=== PATIENT | male | born 1985 | race Caucasian/White ===

== ENCOUNTER 2019-01-11 20:12 | Emergency (ER) | payer OTHER ==
[2019-01-11] MEDS ORDERED: traMADol 50 MG TABLET PO STA (21:24)
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
[2019-01-11 22:14] VITALS: BP 126/74
== END 2019-01-11 22:12 | disposition home or self-care (01) ==
LOC: ED 20:12
DX: T22.53 Corrosion of first degree of upper arm (principal); T65.91XA Toxic effect of unspecified substance, accidental (unintentional), initial encounter; Y99.0 Civilian activity done for income or pay; F17.200 Nicotine dependence, unspecified, uncomplicated
CPT/HCPCS: 1040M; 99282; 99283; A9270

== ENCOUNTER 2019-07-12 09:49 | Outpatient (CLI) | payer OTHER ==
[2019-07-12] MEDS ORDERED: IOVERSOL 320 100 ML VIAL IVP ONE (10:06)
[2019-07-12] MEDS ORDERED: IOVERSOL 320 50 ML VIAL ONE (10:06)
--- NOTE | 2019-07-12 15:10 | CT Report ---
Reason: W/DIASTASIS AND UMBILICAL HERNIA Procedure Date: 07/12/2019 Accession Number: [id number] / [id number] Procedure: CT - Abdomen/Pelvis W CPT Code: Final Report FULL RESULT: EXAM: CT ABDOMEN AND PELVIS WITH IV CONTRAST EXAM DATE: 07/12/2019 11:29 AM. CLINICAL HISTORY: Diastasis and umbilical hernia. COMPARISONS: None. TECHNIQUE: Routine helical CT imaging was performed through the abdomen and pelvis. IV contrast: Optiray 320, 100 mL. Enteric contrast: Yes. Reconstructions: Coronal and sagittal. In accordance with CT protocol optimization, one or more of the following dose reduction techniques were utilized for this exam: automated exposure control, adjustment of mA and/or KV based on patient size, or use of iterative reconstructive technique. FINDINGS: Lung Bases: Unremarkable. Liver: Normal. No masses. Gallbladder/Bile Ducts: Unremarkable. Spleen: Normal. Pancreas: Normal. Adrenal Glands: Normal. Kidneys: Normal. No masses or hydronephrosis. Peritoneal Cavity/Bowel: Normal. No free fluid, free air or adenopathy. No masses or acute inflammatory process. The appendix is well visualized and normal. Pelvic Organs: Normal. The bladder and visualized pelvic organs are within normal limits. Vasculature: No aneurysms or other significant abnormality. Bones: No significant abnormality. Other: There is an umbilical hernia which contains fat protruding through a 0.6 cm abdominal wall defect. IMPRESSION: Fat-containing umbilical hernia with a 0.6 cm wide neck. RADIA
== END 2019-07-12 09:50 | disposition home or self-care (01) ==
LOC: DI 09:49
PROVIDERS: ATTEND Surgery
DX: K42.9 Umbilical hernia without obstruction or gangrene (principal)
CPT/HCPCS: 74177; Q9967

== ENCOUNTER 2021-03-03 07:28 | Outpatient (CLI) | payer OTHER ==
--- NOTE | 2021-03-03 11:35 | XRAY Report ---
PROCEDURE: Knee 4 View RT INDICATIONS: Right knee pain TECHNIQUE: 4 views of the right knee(s) were acquired. COMPARISON: None. FINDINGS: Tricompartmental joint space narrowing in the right knee with small marginal osteophytes. There is mi ld subchondral cystic change in the lateral femorotibial compartment. No acute finding. Normal patellar position. No knee joint effusion. Regional soft tissues unremarkabl e. IMPRESSION: Overall acga-zq-bwayerli osteoarthritis in the knee, worst in the lateral femorotibial c ompartment. Reviewed by: Danielito Inman MD on 03/03/2021 11:34 AM PDT Approved by: Danielito Inman MD on 03/03/2021 11:34 AM PDT Station ID: [id number]
== END 2021-03-03 23:59 | disposition home or self-care (01) ==
LOC: DI.N 07:28
PROVIDERS: ATTEND Physician Assistant
DX: M17.11 Unilateral primary osteoarthritis, right knee (principal)

== ENCOUNTER 2021-03-18 08:16 | Outpatient (CLI) | payer OTHER ==
--- NOTE | 2021-03-18 10:53 | MRI Report ---
PROCEDURE: Knee RT W/O INDICATIONS: RIGHT KNEE INTERNAL DERANGEMENT TECHNIQUE: Noncontrast sagittal PD fast spin echo and T2 fast spin echo with fat saturation, sagittal 3-D gradie nt sequence with fat saturation; coronal T1 spin echo and PD fast spin echo with fat saturation, and axial PD fast spin echo with fat saturation through the knee. COMPARISON: None. FINDINGS: Image quality: Excellent. Menisci: The medial and lateral menisci demonstrate normal morphology and internal signal. The meni scal root ligaments appear intact. Cruciate ligaments: The anterior and posterior cruciate ligaments appear intact. Medial structures: The medial collateral ligament appears intact. The posterior oblique ligament, s emimembranosus tendon insertions, and oblique popliteal ligament, and meniscocapsular junction appear intact. Visualized portions of the pes anserinus tendons appear normal. No abnormal bursal fluid. Lateral structures: The lateral collateral ligament, long and short heads of the biceps femoris tend on appear intact. The popliteus tendon appears normal; the popliteofibular ligament appears intact. The posterosuperior and anteroinferior popliteomeniscal fascicles appear intact. The arcuate and fa bellofibular ligaments appear intact, around the lateral inferior geniculate artery. Iliotibial band appears normal. Anterior structures: The quadriceps and patellar tendons appear intact. Patellar alignment is roberto l. No femoral trochlear dysplasia or ventral trochlear prominence. No edema in the infrapatellar fa t pad. Bones and cartilage: There is joint space narrowing and moderate grade chondromalacia involving later al femoral tibial compartment. Osteochondral injury involving weightbearing portion of lateral femora l condyle measures up to 1.3 x 2 x 0.7 cm in size is seen with surrounding edema. No other area of ab normal marrow signal. Joint space: There is small knee joint fluid. No Barboza?s cyst. Normal appearing synovial plicae ar e incidentally noted. IMPRESSION: 1. 1.3 x 2 x 0.7 cm osteochondral injury involving posterior weightbearing portion of lateral femoral condyle with surrounding edema. Mild osteoarthritis and low to moderate grade chondromalacia in late ral femoral tibial compartment. Small amount of joint fluid. 2. Cruciate ligaments are intact. 3. No evidence of focal meniscal tear. Reviewed by: Salazar Campoverde MD on 03/18/2021 10:52 AM PDT Approved by: Salazar Campoverde MD on 03/18/2021 10:52 AM PDT Station ID: [id number]
== END 2021-03-18 08:17 | disposition home or self-care (01) ==
LOC: DI 08:16
PROVIDERS: ATTEND Physician Assistant
DX: M17.11 Unilateral primary osteoarthritis, right knee (principal); M94.261 Chondromalacia, right knee; M25.461 Effusion, right knee; R93.6 Abnormal findings on diagnostic imaging of limbs

== ENCOUNTER 2021-07-28 08:00 | Outpatient (CLI) | payer OTHER | END 2021-07-28 23:59 | LOC: LAB.N 08:00 | PROVIDERS: ATTEND Physician Assistant Medical | DX: R09.81 Nasal congestion (principal); Z20.822 Contact with and (suspected) exposure to COVID-19 ==

== ENCOUNTER 2023-03-16 11:18 | Outpatient (CLI) | payer OTHER ==
--- NOTE | 2023-03-16 16:14 | XRAY Report ---
PROCEDURE: Lumbar Spine Complete INDICATIONS: LUMBAGO TECHNIQUE: 4 views of the lumbar spine were acquired including oblique views. COMPARISON: None. FINDINGS: Bones: 5 mxh-sjz-scqkpsc vertebrae are present. There is normal bony alignment. No vertebral body compression fractures. No suspicious bony lesions. Mild L1-L2, L2-L3 and L3-L4 degenerative disc hortencia nge. Soft tissues: Overlying bowel gas pattern is normal. No suspicious soft tissue calcifications. Obliques: No pars defects. IMPRESSION: No fracture. No acute osseous lesion. If there is continued clinical concern for pathology, then MRI should be considered for further evaluation. Reviewed by: Tawana Alva MD, PhD on 03/16/2023 4:13 PM PDT Approved by: Tawana Alva MD, PhD on 03/16/2023 4:13 PM PDT Station ID: [id number]
== END 2023-03-16 11:19 | disposition home or self-care (01) ==
LOC: DI 11:18
PROVIDERS: ATTEND Nurse Practitioner Family
DX: M54.41 Lumbago with sciatica, right side (principal)

== ENCOUNTER 2023-03-24 08:55 | Outpatient (CLI) | payer OTHER ==
[2023-03-24 09:18] LABS: ALBUMIN 4.7 g/dL (3.2-5.5); ALBUMIN/GLOBULIN RATIO 1.5 (1.0-2.2); ALKALINE PHOSPHATASE 69 IU/L (42-121); ALT ALANINE AMINOTRANSFERASE 29 IU/L (10-60); AST ASPARTATE AMINOTRANSFERASE 18 IU/L (10-42); BILIRUBIN,TOTAL 0.8 mg/dL (0.2-1.0); BUN - BLOOD UREA NITROGEN 12 mg/dL (6-20); CARBON DIOXIDE - CO2 26 mmol/L (21-32); CHLORIDE 105 mmol/L (101-111); CHOL/HDL RATIO 4.3 (<5.0); CHOLESTEROL 209 mg/dL; GFR - MDRD 85 (>89); GLUCOSE 101 mg/dL (74-104); HDL CHOLESTEROL 49 mg/dL; LDL CHOLESTEROL,CALCULATED 139 mg/dL; LDL/HDL RATIO 2.8 (<3.6); POTASSIUM 3.9 mmol/L (3.5-4.5); SODIUM 136 mmol/L (135-145); TOTAL PROTEIN 7.8 g/dL (6.4-8.9); TRIGLYCERIDES 105 mg/dL (48-352); VLDL CHOLESTEROL 21 mg/dL
== END 2023-03-24 08:56 | disposition home or self-care (01) ==
LOC: LAB 08:55
PROVIDERS: ATTEND Nurse Practitioner Family
DX: E78.5 Hyperlipidemia, unspecified (principal)
CPT/HCPCS: 36415; 80053; 80061; 83721

== ENCOUNTER 2023-11-29 10:40 | Outpatient (CLI) | payer OTHER ==
--- NOTE | 2023-11-29 15:33 | Ultrasound Report ---
PROCEDURE: Abdomen Limited INDICATIONS: UMBILLICAL HERNIA TECHNIQUE: Real-time focused scanning was performed of the abdomen, with image documentation. COMPARISONS: None. FINDINGS: There is a fat-containing nonreducible periumbilical hernia. IMPRESSION: Fat-containing periumbilical hernia. Reviewed by: Caro Currie MD on 11/29/2023 3:32 PM PDT Approved by: Caro Currie MD on 11/29/2023 3:32 PM PDT Station ID: [id number]
== END 2023-11-29 10:41 | disposition home or self-care (01) ==
LOC: DI 10:40
PROVIDERS: ATTEND Nurse Practitioner Family
DX: K42.9 Umbilical hernia without obstruction or gangrene (principal)

== ENCOUNTER 2024-02-17 10:47 | Day surgery (SDC) | payer OTHER ==
[~2024-02-17 10:47] MED LIST: BUPIVACAINE 0.25% PF 30 ML VIAL ONE; LIDOCAINE-MPF 1% 30 ML VIAL ONE; ceFAZolin 2 GM VIAL ONE
[2024-02-17] MEDS: LACTATED RINGERS 1,000 ML IV ONE (10:58)
--- NOTE | 2024-02-17 11:29 | ANESTHESIA ---
Pre-Anesthesia VS, & Labs Height: 6 ft Weight (kg): 105.4 kg Body Mass Index: 31.5 BMI Classification: Obese - NPO >8 hours - Lab Results Lab results reviewed: Yes <Ander Villegas - Last Filed: 02/17/24 11:26> - NPO >8 hours <Ai Turner - Last Filed: 02/17/24 11:41> - Diagnosis umbilical hernia (Ander Villegas) - Procedure umbilical hernia repair (Ander Villegas) Vital Signs: Temp Pulse Resp BP Pulse Ox O2 Flow Rate 36.0 C L 65 15 123/77 99 02/17/24 11:05 02/17/24 11:05 02/17/24 11:05 02/17/24 11:05 02/17/24 11:05 Home Medications and Allergies <Ander Villegas - Last Filed: 02/17/24 11:26> <Ai Turner - Last Filed: 02/17/24 11:41> Home Medications: Ambulatory Orders Dexmethylphenidate HCl [Dexmethylphenidate HCl ER] 35 mg PO DAILY 02/11/24 cloNIDine [Catapres] 0.2 mg PO QPM 02/11/24 Dexmethylphenidate HCl [Dexmethylphenidate HCl ER] 35 mg PO DAILY 02/11/24 cloNIDine [Catapres] 0.2 mg PO QPM 02/11/24 Allergies/Adverse Reactions: Allergies Allergy/AdvReac Type Severity Reaction Status Date / Time meperidine HCl * Allergy Hives Verified 01/11/19 20:26 [From Demerol] Anes History & Medical History - Anesthetic History Anesthesia Complications: reports: No previous complications Family history of Anesthesia Complications: Denies Family history of Malignant Hyperthermia: Denies - Medical History Cardiovascular: reports: None Pulmonary: reports: None Gastrointestinal: reports: GERD Urinary: reports: None Smoking Status: Current every day smoker - Surgical History Orthopedic: reports: Arthroscopic surgery <Ander Villegas - Last Filed: 02/17/24 11:26> - Medical History Cardiovascular: reports: None Pulmonary: reports: None Smoking Status: Former smoker <Ai Turner - Last Filed: 02/17/24 11:41> Exam General: Alert, Oriented x3, Cooperative <Ander Villegas - Last Filed: 02/17/24 11:26> Dental: WNL Mouth Opening: Greater than 4 Fingerbreadths Neck Mobility: Normal Mallampati classification: I Thyromental Distance: less than 4 cm Respiratory: Lungs clear Cardiovascular: Regular rate <Ai Turner E - Last Filed: 02/17/24 11:41> Plan Anesthesia Type: General Consent for Procedure(s) Verified and Reviewed: Yes Code Status: Attempt Resuscitation ASA classification: 2-Mild systemic disease Is this case an emergency?: No <Ander Villegas P - Last Filed: 02/17/24 11:26> Anesthesia Type: General Consent for Procedure(s) Verified and Reviewed: Yes Code Status: Attempt Resuscitation ASA classification: 2-Mild systemic disease Is this case an emergency?: No <Ai Turner E - Last Filed: 02/17/24 11:41>
[2024-02-17] MEDS ORDERED: NALOXONE 0.4 MG/ML VIAL IVP PRN (11:41)
[2024-02-17] MEDS ORDERED: HYDROmorphone 0.5 MG/0.5 ML SYRINGE IVP PRN (11:41)
[2024-02-17] MEDS ORDERED: ONDANSETRON 4 MG/2 ML VIAL IVP PRN (11:41)
[2024-02-17] MEDS ORDERED: ePHEDrine 50 MG/ML VIAL IVP PRN (11:41)
[2024-02-17] MEDS ORDERED: ATROPINE ABBOJECT 1 MG/10 ML SYRINGE IVP PRN (11:41)
[2024-02-17] MEDS ORDERED: MORPHINE 2 MG/ML CARPUJECT IVP PRN (11:41)
[2024-02-17] MEDS ORDERED: MIDAZOLAM 2 MG/2 ML VIAL ONE (11:52)
[2024-02-17] MEDS ORDERED: PROPOFOL 200 MG/20 ML VIAL IVP ONE (11:52)
[2024-02-17] MEDS ORDERED: fentaNYL 100 MCG/2 ML VIAL ONE ×2 (11:52→13:33)
[2024-02-17] MEDS ORDERED: LIDOCAINE-PF 2% 10 ML AMP SUBQ ONE (11:54)
--- NOTE | 2024-02-17 11:57 | HISTORY & PHYSICAL EXAMINATION ---
Chief Complaint - Chief Complaint Chief Complaint: here for hernia sugery History of Present Illness - History Obtained From Records Reviewed: yes History obtained from: pt Exam Limitations: none - History of Present Illness HPI Comment/Other: umbilical hernia. getting bigger and more uncomfortable History - Past Medical History Cardiovascular: reports: None Respiratory: reports: None GI: reports: GERD : reports: None HEENT: reports: Chronic vision loss Psych: reports: Depression, ADD/ADHD, Post traumatic stress disorder MRSA Hx?: No - Past Surgical History Ortho: reports: Arthroscopic surgery - POLST Patient has POLST: No Meds/Allgy - Home Medications Home Medications: Ambulatory Orders Medication Instructions Recorded Confirmed Dexmethylphenidate HCl 35 mg PO DAILY 02/11/24 02/11/24 [Dexmethylphenidate HCl ER] cloNIDine [Catapres] 0.2 mg PO QPM 02/11/24 02/11/24 - Allergies Allergies/Adverse Reactions: Allergies Allergy/AdvReac Type Severity Reaction Status Date / Time meperidine HCl * Allergy Hives Verified 01/11/19 20:26 [From Demerol] Review of Systems - Other Findings Other Findings: 10 pt ros as above otherwise unremarkable Exam - Vital Signs Vital Signs: Vital Signs x48h Temp Pulse Resp BP Pulse Ox 02/17/24 11:05 36.0 C L 65 15 123/77 99 - Physical Exam General Appearance: positive: No acute distress, Alert Eyes Bilateral: positive: PERRL, EOMI ENT: positive: No signs of dehydration Neck: positive: No JVD, Trachea midline Respiratory: positive: No respiratory distress Cardiovascular: positive: Regular rate & rhythm Abdomen: positive: Other (2.5 cm umbilical hernia) Neurologic/Psychiatric: positive: Oriented x3 Conclusion/Plan - Problem List (1) Umbilical hernia Conclusion/Plan: plan open repair with mesh. parq held and consent obtained - Lab Results Lab results reviewed: Yes
[2024-02-17] MEDS ORDERED: LACTATED RINGERS 1,000 ML IV SCH (12:00)
[2024-02-17] MEDS: BUPIVACAINE 0.25% PF 30 ML VIAL SUBQ ONE (12:06)
[2024-02-17] MEDS ORDERED: DEXAMETHASONE 4 MG/ML VIAL ONE (12:21)
[2024-02-17] MEDS ORDERED: ONDANSETRON 4 MG/2 ML VIAL ONE (12:21)
[2024-02-17] MEDS ORDERED: SUGAMMADEX 200 MG/2 ML VIAL IVP ONE (12:58)
[2024-02-17] MEDS: LACTATED RINGERS 200 ML IV ONE ×2 (13:18→13:42)
--- NOTE | 2024-02-17 13:23 | ANESTHESIA POST OP EVALUATION ---
Anesthesia Post Eval - Post Anesthesia Eval Vitals: Last Vital Signs Temp 36.0 C L 02/17/24 11:05 Pulse 65 02/17/24 11:05 Resp 15 02/17/24 11:05 BP 123/77 02/17/24 11:05 Pulse Ox 99 02/17/24 11:05 O2 Flow Rate CV Function Including HR & BP: Stable Pain Control: Satisfactory Nausea & Vomiting: Negative Mental Status: Baseline Respiratory Status: Airway Patent Hydration Status: Satisfactory Anesthesia Complications: None
[2024-02-17] MEDS ORDERED: HYDROcod/ACETAM 5/325 MG TABLET PO PRN (13:25)
--- NOTE | 2024-02-17 13:33 | OPERATIVE REPORT ---
Operative Report - General Procedure Date: 02/17/24 Planned Procedure: open umbilical hernia repair with mesh Pre-Op Diagnosis: umbilical hernia Procedure Performed: open repair 2.5 cm umbilical hernia with mesh Post Op Diagnosis: same - Procedure Note Primary Surgeon: cecilia tabares Anesthesia Technique: General ET tube, Local Pathology: none Estimated Blood Loss (mL): 2 Drain/Tube Type: Other (none) Indications: painful hernia bulge Findings: 1 x 2 inch polypropylene placed preperitoneal Complications: none - Other Other Information/Narrative: The patient was properly identified brought to the operating room and placed in supine position. Sequential compression devices were placed. General anesthesia was induced. The patient was prepped and draped in a sterile fashion and given preoperative antibiotics. Local anesthetic was given throughout the procedure. An infraumbilical incision was made. Dissection proceeded sharply. Subcutaneous tissue was mobilized away from the fascial defect by 2 to 3 cm in all directions. Umbilical skin was sharply excised away from the hernia sac or peritoneum. The peritoneum was then carefully released from the fascial defect edge with cutting current cautery. A preperitoneal space was developed for mesh placement. Polypropylene mesh was cut to size approximately 1x2 inches and placed preperitoneal. The mesh was secured with 9 interrupted 0 Ethibond sutures. 3 additional interrupted 0 Ethibond sutures were placed closing the fascia over the mesh.The mesh lay in good position without tension. Subcutaneous tissue was reapproximated with interrupted 2-0 Vicryl suture. Umbilical skin was tacked back down to fascia with interrupted 2-0 Vicryl suture. Buried interrupted subdermal 3-0 Vicryl sutures were then placed. Skin was closed with a running 4-0 Monocryl subcuticular suture. Dressing was applied. Patient tolerated the procedure the procedure well was awakened and brought to recovery in good condition.
[2024-02-17] MEDS: fentaNYL 100 MCG/2 ML VIAL IVP PRN (13:36)
[2024-02-17] MEDS: HYDROcod/ACETAM 5/325 MG TABLET ONE (14:02)
[2024-02-17 14:17] VITALS: BP 135/89; O2SAT 96
== END 2024-02-17 10:48 | disposition home or self-care (01) ==
LOC: SDS 10:47
PROVIDERS: ATTEND Surgery
DX: K42.9 Umbilical hernia without obstruction or gangrene (principal); E66.9 Obesity, unspecified; Z68.31 Body mass index [BMI] 31.0-31.9, adult; F17.200 Nicotine dependence, unspecified, uncomplicated
CPT/HCPCS: 49591; A9270; C1781; J7120